=== PATIENT | female | born 1970 | race Caucasian/White ===

== ENCOUNTER 2017-10-13 12:31 | Emergency (ER) | payer BC ==
[~2017-10-13] VITALS: Ht 170.2 cm; Wt 96.0 kg
[2017-10-13 13:10] LABS: HEMATOCRIT 40.2 % (36.0-46.0); MCH 29.8 PG (29.0-34.0); MCHC 33.3 G/DL (30.0-36.0); MCV 89.3 FL (83-99); MEAN PLAT.VOLUME 8.9 uM^3 (9.5-12.4); PLATELET COUNT 352 K/uL (156-360); RBC DIS.WIDTH-CV 12.5 % (11.8-14.6); WHITE BLOOD COUNT 8.3 K/uL (4.1-10.2)
[2017-10-13 13:20] LABS: CHLORIDE 107 mEq/L (99-109); POTASSIUM 4.5 mEq/L (3.7-5.4); SODIUM 140 mEq/L (136-147)
[2017-10-13 13:21] LABS: GLUCOSE 85 mg/dL (70-99)
[2017-10-13 13:23] LABS: ANION GAP 6 MEQ/L (2-14)
[2017-10-13 13:25] LABS: GFR ESTIMATE (CALCULATED) 56 mL/min/
[2017-10-13 13:26] LABS: UREA NITROGEN (BUN) 13 mg/dL (9-23)
[2017-10-13 13:42] LABS: TROP-I INTERPRETATION NEGATIVE; TROPONIN-I < 0.01 ng/mL (0.0-0.30)
[2017-10-13 15:12] LABS: TROP-I INTERPRETATION NEGATIVE; TROPONIN-I < 0.01 ng/mL (0.0-0.30)
[2017-10-13 15:39] VITALS: BP 135/84
== END 2017-10-13 15:41 | disposition home or self-care (01) ==
LOC: EME 12:31
PROVIDERS: Emergency Medicine
DX: R07.89 Other chest pain (principal); F41.9 Anxiety disorder, unspecified; F32.9 Major depressive disorder, single episode, unspecified; Z88.2 Allergy status to sulfonamides
CPT/HCPCS: 71020; 80048; 83880; 84484; 85027; 93005; 99281; 99285